=== PATIENT | male | born 1985 | race Hispanic/Latino ===

== ENCOUNTER 2023-12-04 15:03 | Outpatient (RCR) | payer MEDICAID, SELFPAY | END 2023-12-27 23:59 | disposition home or self-care (01) | LOC: CPTX 15:03 | PROVIDERS: PCP Nurse Practitioner Primary Care; Referring Provider Nurse Practitioner Primary Care; Visit Provider Nurse Practitioner Primary Care | DX: Z53.9 Procedure and treatment not carried out, unspecified reason (principal) ==